=== PATIENT | female | born 1950 | race African-American/Black ===

== ENCOUNTER 2018-02-23 16:26 | Inpatient (IN) | payer OTHER, MEDICARE ==
[~2018-02-23] VITALS: Ht 162.6 cm; Wt 68.9 kg
[~2018-02-23 16:26] MED LIST: AMIT50TA13 PO; ATEN-102 PO; CELE20TA PO; GLIP5TAB15 OR; SERO400T3 OR; SIMV40TA OR
[2018-02-23 16:43] VITALS: BP 134/86; PULSE 82; TEMP 98.3; O2SAT 99
[2018-02-23 18:16] LABS: AUTOMATED NEUTROPHIL # 4.1 TH/MM3 (1.8-7.7); BASOPHIL # 0.1 TH/MM3 (0-0.2); BASOPHIL % 0.7 % (0.0-2.0); EOSINOPHIL # 0.1 TH/MM3 (0-0.4); EOSINOPHIL % 1.7 % (0.0-4.0); HEMOGLOBIN 12.9 GM/DL (11.6-15.3); LYMPH % 31.2 % (9.0-44.0); LYMPHOCYTE # 2.3 TH/MM3 (1.0-4.8); MEAN CELL VOLUME 84.3 FL (80.0-100.0); MEAN CORPUSCULAR HEMOGLOBIN 27.9 PG (27.0-34.0); MEAN CORPUSCULAR HGB CONC 33.1 % (32.0-36.0); MEAN PLATELET VOLUME 7.6 FL (7.0-11.0); MONO % 9.5 % (0.0-8.0); MONOCYTE # 0.7 TH/MM3 (0-0.9); NEUT % 56.9 % (16.0-70.0); PLATELET COUNT 256 TH/MM3 (150-450); RED BLOOD COUNT 4.63 MIL/MM3 (4.00-5.30); RED CELL DISTRIBUTION WIDTH 13.8 % (11.6-17.2); WHITE BLOOD COUNT 7.3 TH/MM3 (4.0-11.0)
[2018-02-23] MEDS ORDERED: SERO300T PO (18:19)
[2018-02-23] MEDS ORDERED: METF500T PO (18:19)
[2018-02-23] MEDS ORDERED: ATEN50TA PO (18:19)
--- NOTE | 2018-02-23 18:22 | PD ---
HPI Chief Complaint: Psychiatric Symptoms Time Seen by Provider: 17:31 Travel History International Travel<30 days: No Contact w/Intl Traveler<30days: No Traveled to known affect area: No History of Present Illness HPI The patient 67 years old. She arrives to the ER complaining of continuous anxiety as well as depressed mood generally which is getting much worse in it has been previously. She has the following statements offered for our understanding of her condition, "good spirit tortures me. The evil spirit tortures me. I feel a lot of hurt and I feel a lot of pain. I cannot do nothing for myself. I do not have the mind to cook." Patient denies drug alcohol abuse. She has been compliant with Seroquel. She follows with psychiatry and is due to see her psychiatrist in 2 months. She makes note of acquaintances which evidently are avoiding the patient or not as supportive as they once were. She also notes dysfunctional relationship with her who she believes is trying to harm the patient in 1 way or another. She denies any plans to harm others. She denies any specific plan to take her own life right now. PFSH Past Medical History Arthritis: No Asthma: No Autoimmune Disease: No Blood Disorders: No Anxiety: Yes Depression: Yes Heart Rhythm Problems: No Cancer: No Cardiovascular Problems: Yes High Cholesterol: Yes Chemotherapy: No Chest Pain: No Congestive Heart Failure: No COPD: No Cerebrovascular Accident: No Diabetes: Yes Patient Takes Glucophage: Yes (METFORMIN) Diminished Hearing: No Endocrine: Yes GERD: No Glaucoma: No Genitourinary: No Headaches: No Hepatitis: No Hiatal Hernia: No Hypertension: Yes Immune Disorder: No Kidney Stones: No Musculoskeletal: No Neurologic: No Psychiatric: Yes Reproductive: No Respiratory: No Migraines: No Myocardial Infarction: No Radiation Therapy: No Renal Failure: No Seizures: No Sleep Apnea: No Thyroid Disease: No Ulcer: No Menopausal: Yes : 1 Para: 0 Miscarriage: 1 : 0 Past Surgical History AICD: No Appendectomy: No Arteriovenous Shunt: No Cardiac Surgery: No Cholecystectomy: No Ear Surgery: No Endocrine Surgery: No Eye Surgery: No Genitourinary Surgery: No Gynecologic Surgery: Yes (LUMP REMOVED FROM RIGHT BREAST) Insulin Pump: No Joint Replacement: No Oral Surgery: No Pacemaker: No Thoracic Surgery: No Other Surgery: Yes (RIGHT BREAST LUMPECTOMY) Social History Alcohol Use: No Tobacco Use: No (STOPPED SMOKING 15 YRS AGO) Substance Use: No Allergies-Medications (Allergen,Severity, Reaction): Coded Allergies: No Known Allergies (Verified , 04/30/11) Reported Meds & Prescriptions Reported Meds & Active Scripts Active Reported Atenolol 50 Mg Tab 50 Mg PO DAILY Seroquel (Quetiapine Fumarate) 300 Mg Tab 300 Mg PO HS Metformin (Metformin HCl) 500 Mg Tab 500 Mg PO BIDPC Review of Systems Except as stated in HPI: all other systems reviewed are Neg General / Constitutional: No: Fever Eyes: No: Blurred Vision Physical Exam Narrative GENERAL: 67-year-old female pleasant well-nourished well-developed no acute distress Vital Signs Date Time Temp Pulse Resp B/P (MAP) Pulse Ox O2 Delivery O2 Flow Rate FiO2 02/23/18 16:43 98.3 82 134/86 (102) 99 Respiratory rate 20 SKIN: Warm and dry. HEAD: Atraumatic. Normocephalic. EYES: Pupils equal and round. No scleral icterus. No injection or drainage. ENT: No nasal bleeding or discharge. Mucous membranes pink and moist. NECK: Trachea midline. No JVD. CARDIOVASCULAR: Regular rate and rhythm. RESPIRATORY: No accessory muscle use. Clear to auscultation. Breath sounds equal bilaterally. GASTROINTESTINAL: Abdomen soft, non-tender, nondistended. Hepatic and splenic margins not palpable. MUSCULOSKELETAL: Extremities without clubbing, cyanosis, or edema. No obvious deformities. NEUROLOGICAL: Awake and alert. No obvious cranial nerve deficits. Motor grossly within normal limits. Five out of 5 muscle strength in the arms and legs. Normal speech. PSYCHIATRIC: Reasonably cooperative. Depressed affect. Denies suicidal/ homicidal plan. Data Data Last Documented VS Vital Signs Date Time Temp Pulse Resp B/P (MAP) Pulse Ox O2 Delivery O2 Flow Rate FiO2 02/23/18 16:43 98.3 82 134/86 (102) 99 Orders Orders Complete Blood Count With Diff (02/23/18 17:40) Comprehensive Metabolic Panel (02/23/18 17:40) Thyroid Stimulating Hormone (02/23/18 17:40) Psych Screen (02/23/18 17:40) Drug Screen, Random Urine (02/23/18 17:40) Alcohol (Ethanol) (02/23/18 17:40) Admit Order (Ed Use Only) (02/23/18 ) Diet 1999 Ada Cons Carb (02/23/18 Dinner) Labs Laboratory Tests Test 02/23/18 17:45 02/23/18 18:00 Urine Opiates Screen NEG Urine Barbiturates Screen NEG Urine Amphetamines Screen NEG Urine Benzodiazepines Screen NEG Urine Cocaine Screen NEG Urine Cannabinoids Screen NEG White Blood Count 7.3 TH/MM3 Red Blood Count 4.63 MIL/MM3 Hemoglobin 12.9 GM/DL Hematocrit 39.0 % Mean Corpuscular Volume 84.3 FL Mean Corpuscular Hemoglobin 27.9 PG Mean Corpuscular Hemoglobin Concent 33.1 % Red Cell Distribution Width 13.8 % Platelet Count 256 TH/MM3 Mean Platelet Volume 7.6 FL Neutrophils (%) (Auto) 56.9 % Lymphocytes (%) (Auto) 31.2 % Monocytes (%) (Auto) 9.5 % Eosinophils (%) (Auto) 1.7 % Basophils (%) (Auto) 0.7 % Neutrophils # (Auto) 4.1 TH/MM3 Lymphocytes # (Auto) 2.3 TH/MM3 Monocytes # (Auto) 0.7 TH/MM3 Eosinophils # (Auto) 0.1 TH/MM3 Basophils # (Auto) 0.1 TH/MM3 CBC Comment DIFF FINAL Differential Comment Blood Urea Nitrogen 14 MG/DL Creatinine 0.90 MG/DL Random Glucose 113 MG/DL Total Protein 7.9 GM/DL Albumin 3.6 GM/DL Calcium Level 9.0 MG/DL Alkaline Phosphatase 82 U/L Aspartate Amino Transf (AST/SGOT) 12 U/L Alanine Aminotransferase (ALT/SGPT) 19 U/L Total Bilirubin 0.3 MG/DL Sodium Level 140 MEQ/L Potassium Level 3.5 MEQ/L Chloride Level 107 MEQ/L Carbon Dioxide Level 26.1 MEQ/L Anion Gap 7 MEQ/L Estimat Glomerular Filtration Rate 76 ML/MIN Thyroid Stimulating Hormone 3rd Gen 1.440 uIU/ML Ethyl Alcohol Level LESS THAN 3 MG/DL MDM Medical Decision Making Medical Screen Exam Complete: Yes Emergency Medical Condition: Yes Medical Record Reviewed: Yes Differential Diagnosis Altered mental status/psychosis due to infection/environmental exposure/ metabolic abnormality, polypharmacy, alcohol abuse/intoxication, illicit or prescribed drug abuse, malingering/secondary gain, non-organic psychiatric disease Narrative Course The patient arrives voluntarily. She has no suicidal plan. She has no homicidal plan. Overall I think the patient would stand to gain the most from inpatient psychiatry stay although I doubt there is an imminent suicide risk. Signs of mild psychosis are present including commentary regarding good and evil spirits as well as friends conspiring against her. She has non-insulin- dependent diabetes hypertension hyperlipidemia. I was able to talk to case over with Dr. Plunkett. We will admit the patient to inpatient psych with a medicine consult. This was also discussed with J pod nurse Halie. CBC & BMP Diagram 02/23/18 18:00 Total Protein 7.9, Albumin 3.6, Calcium Level 9.0, Alkaline Phosphatase 82, Aspartate Amino Transf (AST/SGOT) 12 L, Alanine Aminotransferase (ALT/SGPT) 19, Total Bilirubin 0.3 The TSH is normal The alcohol is less than 3 Urine drug screen is thibodeaux negative Patient became quite anxious at about 6:55 PM we discussed breathing techniques. she was reassured and I offered to order her a one-time dose of Ativan. Overall she felt better within a couple minutes following our discussion. Diagnosis Primary Impression: Major depression Qualified Codes: F32.9 - Major depressive disorder, single episode, unspecified Additional Impression: Anxiety and depression Admitting Information Admitting Physician Requests: Admit Rosendo Whitmore MD February 23, 2018 18:22
[2018-02-23] MEDS ORDERED: GLUCAGON 1 MG/ML VIAL OTHER PRN (18:30)
[2018-02-23] MEDS ORDERED: NICOTINE 21 MG/24 HR PATCH T-DERMAL PRN (18:30)
[2018-02-23] MEDS ORDERED: ALUMINUM/MAGNESIUM/SIMETH 30 ML CUP PO PRN (18:30)
[2018-02-23] MEDS ORDERED: ACETAMINOPHEN 325 MG TAB PO PRN (18:30)
[2018-02-23] MEDS ORDERED: MAGNESIUM HYDROXIDE SUSP 30 ML CUP PO PRN (18:30)
[2018-02-23] MEDS ORDERED: DEXTROSE 50% IN WATER 50 ML VIAL(D50) IV PUSH PRN (18:30)
[2018-02-23] MEDS ORDERED: REMOVE OLD PATCH T-DERMAL PRN (18:45)
[2018-02-23 18:52] LABS: ALBUMIN 3.6 GM/DL (3.4-5.0); ALKALINE PHOSPHATASE 82 U/L (45-117); ALT (GPT) 19 U/L (10-53); AST (GOT) 12 U/L (15-37); BICARBONATE 26.1 MEQ/L (21.0-32.0); BLOOD UREA NITROGEN 14 MG/DL (7-18); CHLORIDE 107 MEQ/L (98-107); GLOMERULAR FILTRATION RATE 76 ML/MIN (>89); GLUCOSE,RANDOM 113 MG/DL (74-106); SODIUM (NA) 140 MEQ/L (136-145); TOTAL BILIRUBIN ADULT 0.3 MG/DL (0.2-1.0); TOTAL PROTEIN 7.9 GM/DL (6.4-8.2)
[2018-02-23 20:13] VITALS: BP 180/92; PULSE 74; RESP 16; TEMP 97.9; O2SAT 99
[2018-02-23] MEDS: QUEtiapine FUMARATE 300 MG TAB PO SCH (20:47)
[2018-02-23] MEDS: INSULIN ASPART SUPPLEMENTAL SCALE SQ SCH (20:48)
[2018-02-23] MEDS ORDERED: METO1TAB9 PO (23:32)
[2018-02-24 05:52] VITALS: BP 151/89; PULSE 88; RESP 17; TEMP 98.3; O2SAT 100
[2018-02-24] MEDS: INSULIN ASPART SUPPLEMENTAL SCALE SQ SCH ×4 (08:00→20:25)
[2018-02-24] MEDS: ATENOLOL 50 MG TAB PO SCH (08:34)
[2018-02-24] MEDS: metFORMIN HCL 500 MG TAB PO SCH ×2 (08:35→17:28)
[2018-02-24 10:08] LABS: BICARBONATE 27.4 MEQ/L (21.0-32.0); BLOOD UREA NITROGEN 12 MG/DL (7-18); CALCIUM 9.5 MG/DL (8.5-10.1); CHLORIDE 103 MEQ/L (98-107); CHOLESTEROL 217 MG/DL (120-200); CHOLESTEROL/ HDL RATIO 3.58 RATIO; CREATININE 1.06 MG/DL (0.50-1.00); GLOMERULAR FILTRATION RATE 63 ML/MIN (>89); GLUCOSE,RANDOM 237 MG/DL (74-106); HDL CHOLESTEROL 60.5 MG/DL (40.0-60.0); LDL CHOLESTEROL 113 MG/DL (0-99); SODIUM (NA) 140 MEQ/L (136-145); TRIGLYCERIDES 217 MG/DL (42-150)
[2018-02-24 11:20] LABS: HEMOGLOBIN A1C 7.4 % (4.3-6.0)
--- NOTE | 2018-02-24 15:05 | HHI.HP ---
Provisional Diagnosis Admission Date February 23, 2018 at 18:16 [place] I. 1. Schizoaffective disorder, bipolar type, acute exacerbation [place] II. Deferred Certification of Person's Competence To Provide Express and Informed Consent I have personally examined Sophia Flanagan , a person being served at [facility] on, February 24, 2018 15:05. Express and informed consent means consent voluntarily given in writing, by a competent person, after sufficient explanation and disclosure of the subject matter involved to enable the person to make a knowing and willful decision without any element of force, fraud, deceit, duress, or other form of constraint or coercion. This person is 18 years of age or older, is not now known to be incompetent to consent to treatment with a guardian advocate, and does not have a health care surrogate or proxy currently making medical treatment decisions. I have found this person to be one of the following: [x] Competent to provide express and informed consent, as defined above, for voluntary admission to this facility and is competent to provide express and informed consent for treatment. He/she has the consistent capacity to make well reasoned, willful, and knowing decisions concerning his or her medical or mental health treatment. The person fully and consistently understands the purpose of the admission for examination/placement and is fully capable of personally exercising all rights assured [place] Incompetent to provide express and informed consent to voluntary admission, and this is incompetent to provide express and informed consent to treatment. The person must be transferred to involuntary status and a petition for a guardian advocate filed with the Circuit Court. [] Refusing to provide express and informed consent to voluntary admission but is competent to provide express and informed consent for treatment. The person must be discharged or transferred to involuntary status. Form shall be completed within 24 hours of a person's arrival at the receiving facility and filed in the clinical record of each person: 1. Admitted on a voluntary basis 2. Permitted to provide express and informed consent to his/her own treatment 3. Allowed to transfer from involuntary to voluntary status 4. Prior to permitting a person to consent to his or her own treatment after having been previously found incompetent to consent to treatment. History of Present Illness Capacity: Has Capacity Psych Chief Complaint: Psychosis HPI Ms. Flanagan is a 67-year-old female with a history of schizoaffective disorder who presented voluntarily to the emergency room complaining of anxiety and depression. Reviewing the electronic medical record, I note that the patient was admitted most recently [place] [address] Baires. Patient seen and examined with nurse. Chart reviewed. Case discussed with nursing staff. On my examination today, the patient is a somewhat discursive historian. She appears to exhibit some stereotypies with her hands. She has a somewhat silly, childlike affect. She tells me that she has been getting "negative vibes" from a male partner, possibly her , and she feels like he has been "bringing me down." Unclear to what extent this is reality based, and at another point she complains that he has been flirting with other women. She also alleges that this person has been "trying to put a spirit in me" to convince her to use drugs as he does. She also alleges that this person is "turning the neighbors against me." She denies any suicidal or homicidal ideation. Denies any audiovisual hallucinations. She does admit to feelings of paranoia. No other delusions elicited. Mood is somewhat depressed. No hypomanic or manic symptoms. Remainder of the psychiatric ROS is negative. No acute physical complaints. Past psychiatric history: The patient has a history of schizoaffective disorder. She follows with a female psychiatrist in [place]. Most recent psychiatric admission was here at [facility]. She denies any history of suicide attempts. Family history: The patient denies any family history of mental illness. Chemical dependency history: Patient denies any abuse of drugs or alcohol. Social history: The patient is in a partnered relationship. She is a [employer]. No reported access to guns or firearms. Review of Systems ROS Limitations: Psychotic, Poor Historian Except as stated in HPI: all other systems reviewed are Neg Past Family Social History Coded Allergies: No Known Allergies (Verified , 04/30/11) Past Medical History Includes a history of hypertension and diabetes Reported Medications Metoprolol Succinate ER 24 HR (Metoprolol Succinate ER 24 HR) 50 Mg Tab, 50 MG PO BID, #30 TAB 0 Refills 02/23/18 Atenolol (Atenolol) 50 Mg Tab, 50 MG PO DAILY for Blood Pressure Management, # 30 TAB 0 Refills 02/23/18 Quetiapine (Seroquel) 300 Mg Tab, 300 MG PO HS, #30 TAB 0 Refills 02/23/18 Metformin (Metformin) 500 Mg Tab, 500 MG PO BIDPC for Blood Sugar Management, # 60 TAB 0 Refills 02/23/18 Current Medications Medications (Trade) Dose Ordered Sig/Ashlee Route Start Time Stop Time Status Last Admin (Tylenol) 650 mg Q4H PRN PO 02/23/18 18:30 (Milk Of Magnesia Liq) 30 ml DAILY PRN PO 02/23/18 18:30 (Mag-Al Plus Susp Liq) 30 ml Q6H PRN PO 02/23/18 18:30 (Habitrol 21 Mg Patch.24 Hr) 1 patch DAILY PRN T-DERMAL 02/23/18 18:30 (Tenormin) 50 mg DAILY PO 02/24/18 09:00 02/24/18 08:34 (Glucophage) 500 mg BIDPC PO 02/24/18 09:00 02/24/18 08:35 (SEROquel) 300 mg HS PO 02/23/18 21:00 Future Hold (D50w (Vial) Inj) 50 ml UNSCH PRN IV PUSH 02/23/18 18:30 (Glucagon Inj) 1 mg UNSCH PRN OTHER 02/23/18 18:30 (NovoLOG SUPPLEMENTAL SCALE) 1 ACHS SLIDING SCALE SQ 02/23/18 21:00 02/24/18 12:00 Miscellaneous Information 1 HS PRN T-DERMAL 02/23/18 18:45 Patient's Strengths (min. 2) In a monitored setting. Verbally fluent. Physical Exam Physical examination was completed by the ED provider. On my examination today , the patient appears to be in no acute physical distress. Except as above, no other motor abnormalities noted. Labs and vitals reviewed: Vital Signs Vital Signs Date Time Temp Pulse Resp B/P (MAP) Pulse Ox O2 Delivery O2 Flow Rate FiO2 02/24/18 05:52 98.3 88 17 151/89 (109) 100 Lab Results Test 02/23/18 17:45 02/23/18 18:00 02/24/18 08:47 Urine Opiates Screen NEG Urine Barbiturates Screen NEG Urine Amphetamines Screen NEG Urine Benzodiazepines Screen NEG Urine Cocaine Screen NEG Urine Cannabinoids Screen NEG White Blood Count 7.3 TH/MM3 Red Blood Count 4.63 MIL/MM3 Hemoglobin 12.9 GM/DL Hematocrit 39.0 % Mean Corpuscular Volume 84.3 FL Mean Corpuscular Hemoglobin 27.9 PG Mean Corpuscular Hemoglobin Concent 33.1 % Red Cell Distribution Width 13.8 % Platelet Count 256 TH/MM3 Mean Platelet Volume 7.6 FL Neutrophils (%) (Auto) 56.9 % Lymphocytes (%) (Auto) 31.2 % Monocytes (%) (Auto) 9.5 % Eosinophils (%) (Auto) 1.7 % Basophils (%) (Auto) 0.7 % Neutrophils # (Auto) 4.1 TH/MM3 Lymphocytes # (Auto) 2.3 TH/MM3 Monocytes # (Auto) 0.7 TH/MM3 Eosinophils # (Auto) 0.1 TH/MM3 Basophils # (Auto) 0.1 TH/MM3 CBC Comment DIFF FINAL Differential Comment Blood Urea Nitrogen 14 MG/DL 12 MG/DL Creatinine 0.90 MG/DL 1.06 MG/DL Random Glucose 113 MG/DL 237 MG/DL Total Protein 7.9 GM/DL Albumin 3.6 GM/DL Calcium Level 9.0 MG/DL 9.5 MG/DL Alkaline Phosphatase 82 U/L Aspartate Amino Transf (AST/SGOT) 12 U/L Alanine Aminotransferase (ALT/SGPT) 19 U/L Total Bilirubin 0.3 MG/DL Sodium Level 140 MEQ/L 140 MEQ/L Potassium Level 3.5 MEQ/L 3.5 MEQ/L Chloride Level 107 MEQ/L 103 MEQ/L Carbon Dioxide Level 26.1 MEQ/L 27.4 MEQ/L Anion Gap 7 MEQ/L 10 MEQ/L Estimat Glomerular Filtration Rate 76 ML/MIN 63 ML/MIN Thyroid Stimulating Hormone 3rd Gen 1.440 uIU/ML Ethyl Alcohol Level LESS THAN 3 MG/DL Hemoglobin A1c 7.4 % Triglycerides Level 217 MG/DL Cholesterol Level 217 MG/DL LDL Cholesterol 113 MG/DL HDL Cholesterol 60.5 MG/DL Cholesterol/HDL Ratio 3.58 RATIO Decreased GFR noted. Hyperglycemia noted. Elevated hemoglobin A1c noted. Lipid panel abnormalities noted. Mental Status Examination Appearance: Appropriate Consciousness: Alert Orientation: x4 Motor Activity: Normal gait Speech: Rapid Language: Other (Rambling) Fund of Knowledge: Adequate Attention and Concentration: Easily Distracted Memory: Unremarkable Mood: Other (Depressed) Affect: Other (Somewhat silly, childlike) Thought Process & Associations: Circumstantial Thought Content: Delusional Hallucination Type: None Delusion Type: Paranoid Suicidal Ideation: No Suicidal Plan: No Suicidal Intention: No Homicidal Ideation: No Homicidal Plan: No Homicidal Intention: No Insight: Fair Judgment: Impulsive Assessment & Plan Problem List: (1) Schizoaffective disorder, bipolar type ICD Codes: F25.0 - Schizoaffective disorder, bipolar type Assessment & Plan 67-year-old female with psychiatric history as detailed above who is presently voluntarily admitted to the psychiatric unit. On my examination today, the patient elaborates paranoid delusions and endorses subjective paranoia. There may be some degree of reality basis to some of her reports regarding her male partner, but the overall picture is most consistent with paranoia. Patient reports adherence with her Seroquel. She requires psychiatric admission at this time for safety, observation and medication adjustment for stabilization. Admit inpatient. Voluntary status. Titrate Seroquel to 50 mg in the morning and 300 mg at bedtime with plans for ongoing titration to effect to target psychosis. Check EKG for QTC. Low-dose Ativan as needed for anxiety. Benadryl as needed for sleep. Cogentin as needed for EPS. Continue patient's atenolol for hypertension and metformin for hyperglycemia. Add sliding scale insulin and Accu-Cheks. I will ask the hospitalist to see the patient to evaluate whether medical regimen needs to be adjusted and to address the lipid panel abnormalities. OT eval. Vitals every shift. Counselor to see. Collateral information. Disposition planning. Estimated length of stay: 5-7 days. Discharge Planning Pending psychiatric stabilization Request HC Surrog/Guard Advoc?: No Floyd Plunkett MD February 24, 2018 15:05
[2018-02-24] MEDS ORDERED: diphenhydrAMINE HCL 50 MG CAP PO PRN (15:30)
[2018-02-24] MEDS ORDERED: LORazepam 2 MG/ML VIAL IM PRN (15:30)
[2018-02-24] MEDS ORDERED: BENZTROPINE MESYLATE 1 MG TAB PO PRN (15:30)
[2018-02-24] MEDS ORDERED: BENZTROPINE MESYLATE 2 MG/2 ML VIAL IM PRN (15:30)
[2018-02-24] MEDS ORDERED: LORazepam 0.5 MG TAB PO PRN (15:30)
[2018-02-24] MEDS ORDERED: cloNIDine HCL 0.1 MG TAB PO PRN (17:30)
--- NOTE | 2018-02-24 17:40 | EKG ---
Date Performed: 02/24/2018 Time Performed: 16:32:57 PTAGE: 67 years EKG: SINUS BRADYCARDIA BORDERLINE ECG PREVIOUS TRACING : 08/27/2009 00.27 Compared to previous tracing, heart rate has decreased, non specific ST changes have resolved. DOCTOR: Gopal Gill Interpretating Date/Time 02/24/2018 17:39:24
[2018-02-24 18:40] VITALS: BP 126/81; PULSE 74; RESP 17; TEMP 98.6; O2SAT 100
[2018-02-24] MEDS: QUEtiapine FUMARATE 300 MG TAB PO SCH (20:25)
[2018-02-25 05:27] VITALS: BP 123/73; PULSE 63; RESP 16; TEMP 98.5; O2SAT 98
[2018-02-25] MEDS: INSULIN ASPART SUPPLEMENTAL SCALE SQ SCH ×4 (08:00→21:00)
[2018-02-25] MEDS: QUEtiapine FUMARATE 25 MG TAB PO SCH (08:57)
[2018-02-25] MEDS: metFORMIN HCL 500 MG TAB PO SCH ×2 (08:57→18:06)
[2018-02-25] MEDS: ATENOLOL 50 MG TAB PO SCH (08:57)
[2018-02-25] MEDS ORDERED: amLODIPine BESYLATE 5 MG TAB PO SCH (09:00)
--- NOTE | 2018-02-25 10:02 | PD.CONS ---
HPI Service [facility] Hospitalists Consult Requested By Psychiatry service Reason for Consult Medical management history of hypertension, diabetes mellitus type II Primary Care Physician Jeremy Castellano MD Diagnoses: History of Present Illness Patient is a very pleasant 67-year-old female with known history of hypertension , diabetes, who was admitted under psychiatry service. Patient states that she brought herself in "I need help, really depressed and anxious and everything else! ". [facility] hospitalist consulted for management of hypertension, diabetes. Patient states she checks blood sugars "all day long" and states good hypoglycemic awareness. Patient states sugars usually ranging 120s occasionally the 200s. She denies any chest pain shortness of breath cough weight loss. States she follows up with her primary care physician Dr. Petar Tierney on a regular basis. Patient currently denies any complaints, appears anxious but very pleasant cooperative and delightful. States she is up-to-date with her colonoscopy which was negative about 5 years ago, gets mammogram yearly per patient - unremarkable. Review of Systems Constitutional: DENIES: Fever, Weight loss, Chills, Change in appetite Eyes: DENIES: Blurred vision, Double Vision Ears, nose, mouth, throat: DENIES: Tinnitus, Ear Pain, Epistaxis, Odynophagia Respiratory: DENIES: Cough, Hemoptysis, Sputum production, Shortness of breath Cardiovascular: DENIES: Chest pain, Palpitations, Dyspnea on Exertion, Lower Extremity Edema, Orthopnea Gastrointestinal: DENIES: Black stools, Bloody stools, Difficulty Swallowing, Anorexia Genitourinary: DENIES: Urgency, Hematuria, Vaginal discharge Musculoskeletal: DENIES: Joint pain, Stiffness Integumentary: DENIES: Pruritus Hematologic/lymphatic: DENIES: Bruising Immunologic/allergic: DENIES: Urticaria Neurologic: DENIES: Headache, Speech Problems, Tremor Psychiatric: DENIES: Suicidal Ideation, Homicidal Ideation Past Family Social History Allergies: Coded Allergies: No Known Allergies (Verified , 04/30/11) Past Medical History Hypertension, diabetes type 2, depression/anxiety Past Surgical History Left wrist carpal tunnel surgery 5 years ago Reported Medications Home meds per patient states - she is on Metformin atenolol and Seroquel - she is not sure about amlodipine Active Ordered Medications Currently in-house she is on Seroquel 50 mg daily 200 mg at bedtime Amlodipine 5 mg daily Ativan as needed Benadryl as needed Cogentin 0.5 IM as needed Atenolol 50 mg daily Metformin 500 twice daily Sliding scale insulin Nicotine patch Family History She has a sister who is a diabetic and is insulin requiring Social History Denies smoking alcohol or substance abuse Physical Exam Vital Signs Vital Signs Date Time Temp Pulse Resp B/P (MAP) Pulse Ox O2 Delivery O2 Flow Rate FiO2 02/25/18 05:27 98.5 63 16 123/73 (90) 98 02/24/18 18:40 98.6 74 17 126/81 (96) 100 Physical Exam GENERAL: This is a well-nourished, well-developed patient, in no apparent distress. Awake alert oriented 3, appears delightfully anxious, speech hurried and very interactive SKIN: Cool and dry. HEAD: Atraumatic. Normocephalic. EYES: Pupils equal round and reactive. Extraocular motions intact. No scleral icterus. ENT: Nose without bleedingThroat without erythema. Uvula midline. Airway patent. NECK: Trachea midline. No JVD or lymphadenopathy. Supple, nontender, no meningeal signs. CARDIOVASCULAR: Regular rate and rhythm-heart rate 60/min regular without murmurs, gallops, or rubs. RESPIRATORY: Clear to auscultation. Breath sounds equal bilaterally. No wheezes , rales, or rhonchi. GASTROINTESTINAL: Abdomen soft, non-tender, nondistended. No guarding. MUSCULOSKELETAL: Extremities without clubbing, cyanosis, or edema. No joint tenderness, effusion, or edema noted. No calf tenderness. Negative Homans sign bilaterally. Good peripheral pulses NEUROLOGICAL: Awake and alert. Cranial nerves II through XII intact. Motor and sensory grossly within normal limits. Five out of 5 muscle strength in all muscle groups. Normal speech. Laboratory Laboratory Tests Test 02/25/18 08:45 Result Diagram: 02/23/18 1800 02/24/18 0847 Assessment and Plan Assessment and Plan 67-year-old [facility] currently blood pressure is 123/73 heart rate of 63, was initially elevated on admission-likely secondary to psychiatric condition was probably agitated state on initial evaluation Continue on atenolol 50 mg p.o. daily. - was started on Amlodipine 5 mg daily.- will DC We will consider changing to an SARAI inhibitor which will be ideal for a diabetic hypertensive.- with renal protection benefits Twelve-lead EKG shows normal sinus rhythm no acute ST-T wave changes Chest x- ray reviewed - negative for infiltrates or effusion We will continue to monitor and adjust medications Diabetes type 2 hemoglobin A1c 7.4 -Glucose reading 150, 121 - Continue on on ADA diet. Continue on metformin 500 mg twice daily and monitor. And adjust. Diabetes education/nutritional needs consult. Hyperlipidemia. Lipid panel was rechecked this morning to make sure that this is a fasting specimen. Immigration Services Officer consult. Consider starting patient on statins-review of records in the past 2010 patient was on statins. Patient denies does not recall any reactions to these medications Patient up and ambulating. Thank you for this consult will follow patient in-house with you Discussed Condition With Patient Jordan Lang MD February 25, 2018 10:02
[2018-02-25 10:24] LABS: BICARBONATE 29.1 MEQ/L (21.0-32.0); CALCIUM 9.7 MG/DL (8.5-10.1); CREATININE 0.98 MG/DL (0.50-1.00)
[2018-02-25 10:28] LABS: CHOLESTEROL/ HDL RATIO 4.11 RATIO; HDL CHOLESTEROL 49.6 MG/DL (40.0-60.0)
[2018-02-25 17:01] VITALS: BP 127/66; PULSE 76; RESP 16; TEMP 97.3; O2SAT 99
--- NOTE | 2018-02-25 17:22 | HHI.PYPN ---
Subjective Chief Complaint: Psychosis Remarks Patient seen for follow-up, chart reviewed. Discussion with nursing staff reported that the patient noted to be paranoid. Patient was found in day room noted to be calm and cooperative. She states that she is feeling " better...more relaxed", noted to be somewhat disorganized, difficulty to follow train of thought. She states that she is feeling "more open" regarding her worries about dealing with her depression and anxiety; "negative thinking". She mentions feeling of being mistreated by emotionally. Currently reporting feeling "less depressed", denies any SI at this time. Patient mentions living alone for the past several months. Review of Systems Except as stated in HPI: all other systems reviewed are Neg Mental Status Examination Appearance: Appropriate Consciousness: Alert Orientation: x4 Motor Activity: Normal gait Speech: Rapid Language: Other (Rambling) Fund of Knowledge: Adequate Attention and Concentration: Easily Distracted Memory: Unremarkable Mood: Other (Depressed) Affect: Other (Somewhat silly, childlike) Thought Process & Associations: Circumstantial, Disorganized (at times) Thought Content: Delusional Hallucination Type: None Delusion Type: Paranoid Suicidal Ideation: No Suicidal Plan: No Suicidal Intention: No Homicidal Ideation: No Homicidal Plan: No Homicidal Intention: No Insight: Fair Judgment: Impulsive Results Labs labs reviewed. Test 02/25/18 08:45 Blood Urea Nitrogen 17 MG/DL Creatinine 0.98 MG/DL Random Glucose 245 MG/DL Calcium Level 9.7 MG/DL Sodium Level 138 MEQ/L Potassium Level 3.4 MEQ/L Chloride Level 101 MEQ/L Carbon Dioxide Level 29.1 MEQ/L Anion Gap 8 MEQ/L Estimat Glomerular Filtration Rate 68 ML/MIN Triglycerides Level 219 MG/DL Cholesterol Level 204 MG/DL LDL Cholesterol 111 MG/DL HDL Cholesterol 49.6 MG/DL Cholesterol/HDL Ratio 4.11 RATIO Vitals/IOs Vital Signs Date Time Temp Pulse Resp B/P (MAP) Pulse Ox O2 Delivery O2 Flow Rate FiO2 02/25/18 17:01 97.3 76 16 127/66 (86) 99 Assessment & Plan Problem List: (1) Schizoaffective disorder, bipolar type ICD Codes: F25.0 - Schizoaffective disorder, bipolar type Assessment & Plan Patient reports feeling depressed but improving, noted with some disorganization. Will continue current treatment and monitor mood and behavior. May need to require further titration if patient continues with limited improvement. Discharge planning in progress. Justification for Cont. Inpt. At risk for further decompensation at lower level of care. Request HC Surrog/Guard Advoc?: No Anand Rose MD February 25, 2018 17:22
[2018-02-25] MEDS: QUEtiapine FUMARATE 300 MG TAB PO SCH (21:22)
[2018-02-26 06:29] VITALS: BP 104/51; PULSE 70; RESP 18; TEMP 98.4; O2SAT 98
[2018-02-26] MEDS: INSULIN ASPART SUPPLEMENTAL SCALE SQ SCH ×3 (08:00→16:12)
[2018-02-26] MEDS: QUEtiapine FUMARATE 25 MG TAB PO SCH (08:31)
[2018-02-26] MEDS: metFORMIN HCL 500 MG TAB PO SCH (08:31)
[2018-02-26] MEDS: ATENOLOL 50 MG TAB PO SCH (08:31)
[2018-02-26] MEDS ORDERED: ATORVASTATIN 20 MG TAB PO SCH (09:00)
[2018-02-26] MEDS ORDERED: POTASSIUM CHLORIDE 25 MEQ EFFERVESCENT TAB PO ONE (09:00)
--- NOTE | 2018-02-26 12:19 | HHI.PR ---
Subjective Remarks Patient up ambulating about the room appears to be in no acute distress Patient offers no complaints at this time reports feeling well overall Objective Vitals Vital Signs Date Time Temp Pulse Resp B/P (MAP) Pulse Ox O2 Delivery O2 Flow Rate FiO2 02/26/18 06:29 98.4 70 18 104/51 (68) 98 02/25/18 17:01 97.3 76 16 127/66 (86) 99 Result Diagram: 02/23/18 1800 02/25/18 0845 Other Results Laboratory Tests Test 02/23/18 17:45 02/23/18 18:00 02/24/18 08:47 02/25/18 08:45 Urine Opiates Screen NEG Urine Barbiturates Screen NEG Urine Amphetamines Screen NEG Urine Benzodiazepines Screen NEG Urine Cocaine Screen NEG Urine Cannabinoids Screen NEG White Blood Count 7.3 TH/MM3 Red Blood Count 4.63 MIL/MM3 Hemoglobin 12.9 GM/DL Hematocrit 39.0 % Mean Corpuscular Volume 84.3 FL Mean Corpuscular Hemoglobin 27.9 PG Mean Corpuscular Hemoglobin Concent 33.1 % Red Cell Distribution Width 13.8 % Platelet Count 256 TH/MM3 Mean Platelet Volume 7.6 FL Neutrophils (%) (Auto) 56.9 % Lymphocytes (%) (Auto) 31.2 % Monocytes (%) (Auto) 9.5 % Eosinophils (%) (Auto) 1.7 % Basophils (%) (Auto) 0.7 % Neutrophils # (Auto) 4.1 TH/MM3 Lymphocytes # (Auto) 2.3 TH/MM3 Monocytes # (Auto) 0.7 TH/MM3 Eosinophils # (Auto) 0.1 TH/MM3 Basophils # (Auto) 0.1 TH/MM3 CBC Comment DIFF FINAL Differential Comment Blood Urea Nitrogen 14 MG/DL 12 MG/DL 17 MG/DL Creatinine 0.90 MG/DL 1.06 MG/DL 0.98 MG/DL Random Glucose 113 MG/DL 237 MG/DL 245 MG/DL Total Protein 7.9 GM/DL Albumin 3.6 GM/DL Calcium Level 9.0 MG/DL 9.5 MG/DL 9.7 MG/DL Alkaline Phosphatase 82 U/L Aspartate Amino Transf (AST/SGOT) 12 U/L Alanine Aminotransferase (ALT/SGPT) 19 U/L Total Bilirubin 0.3 MG/DL Sodium Level 140 MEQ/L 140 MEQ/L 138 MEQ/L Potassium Level 3.5 MEQ/L 3.5 MEQ/L 3.4 MEQ/L Chloride Level 107 MEQ/L 103 MEQ/L 101 MEQ/L Carbon Dioxide Level 26.1 MEQ/L 27.4 MEQ/L 29.1 MEQ/L Anion Gap 7 MEQ/L 10 MEQ/L 8 MEQ/L Estimat Glomerular Filtration Rate 76 ML/MIN 63 ML/MIN 68 ML/MIN Thyroid Stimulating Hormone 3rd Gen 1.440 uIU/ML Ethyl Alcohol Level LESS THAN 3 MG/DL Hemoglobin A1c 7.4 % Triglycerides Level 217 MG/DL 219 MG/DL Cholesterol Level 217 MG/DL 204 MG/DL LDL Cholesterol 113 MG/DL 111 MG/DL HDL Cholesterol 60.5 MG/DL 49.6 MG/DL Cholesterol/HDL Ratio 3.58 RATIO 4.11 RATIO Objective Remarks GENERAL: This is a well-nourished, well-developed patient, in no apparent distress. CARDIOVASCULAR: Regular rate and rhythm RESPIRATORY: Clear to auscultation. Breath sounds equal bilaterally. GASTROINTESTINAL: Abdomen soft, non-tender, nondistended. Normal active bowel sounds MUSCULOSKELETAL: Extremities without clubbing, cyanosis, or edema. NEURO: Awake and alert. moves all ext x4 A/P Assessment and Plan 67-year-[facility] currently blood pressure is 123/73 heart rate of 63, was initially elevated on admission-likely secondary to psychiatric condition was probably agitated state on initial evaluation Continue on atenolol 50 mg p.o. daily. - was started on Amlodipine 5 mg daily DC'd We will consider changing to an SARAI inhibitor which will be ideal for a diabetic hypertensive.- with renal protection benefits Twelve-lead EKG shows normal sinus rhythm no acute ST-T wave changes Chest x- ray reviewed - negative for infiltrates or effusion We will continue to monitor and adjust medications Diabetes type 2 hemoglobin A1c 7.4 -Glucose reading elevated - Continue on on ADA diet. Increase metformin 1000 mg twice daily and monitor. - Diabetes education/nutritional needs consult. Hyperlipidemia. Lipid panel reviewed and revealed total cholesterol 204, LDL 111, HDL 49.6, triglycerides 219 Net Trainer consult. ASCVD risk reveals 17.5% risk of cardiovascular event in the next 10 years patient recommended to have high dose statin Start simvastatin 20 mg daily, will likely need to be increased by outpatient PCP if patient able to tolerate Supervising physician Jihan Escobedo February 26, 2018 12:19
[2018-02-26] MEDS ORDERED: SERO300T PO (13:29)
[2018-02-26] MEDS ORDERED: QUET5TAB PO (13:29)
[2018-02-26] MEDS ORDERED: ATEN50TA PO (13:29)
[2018-02-26] MEDS ORDERED: METF500 PO (13:29)
[2018-02-26] MEDS ORDERED: ATOR20TA15 PO (13:29)
--- NOTE | 2018-02-26 13:30 | HHI.DS ---
Psychiatry Discharge Summary Inpatient Psychiatric care?: Yes Advance Directive: No Reason Not Provided: Due to Patient Condition Mental Health AdvanceDirective: No Health Care Proxy: No Admission Admission Date February 23, 2018 at 18:16 Admission Diagnosis: (1) Schizoaffective disorder, bipolar type ICD Code: F25.0 - Schizoaffective disorder, bipolar type Brief History Ms. Flanagan is a 67-year-old female with a history of schizoaffective disorder who presented voluntarily to the emergency room complaining of anxiety and depression. Reviewing the electronic medical record, I note that the patient was admitted most recently [place] [address] Baires. Patient seen and examined with nurse. Chart reviewed. Case discussed with nursing staff. On my examination today, the patient is a somewhat discursive historian. She appears to exhibit some stereotypies with her hands. She has a somewhat silly, childlike affect. She tells me that she has been getting "negative vibes" from a male partner, possibly her , and she feels like he has been "bringing me down." Unclear to what extent this is reality based, and at another point she complains that he has been flirting with other women. She also alleges that this person has been "trying to put a spirit in me" to convince her to use drugs as he does. She also alleges that this person is "turning the neighbors against me." She denies any suicidal or homicidal ideation. Denies any audiovisual hallucinations. She does admit to feelings of paranoia. No other delusions elicited. Mood is somewhat depressed. No hypomanic or manic symptoms. Remainder of the psychiatric ROS is negative. No acute physical complaints. Past psychiatric history: The patient has a history of schizoaffective disorder. She follows with a female psychiatrist in [place]. Most recent psychiatric admission was here at [place]. She denies any history of suicide attempts. Family history: The patient denies any family history of mental illness. Chemical dependency history: Patient denies any abuse of drugs or alcohol. Social history: The patient is in a partnered relationship. She is a Jainism. No reported access to guns or firearms. Tobacco Use In Past 30 Days: No Tobacco Past 30 Days Alcohol Use: Monthly or Less Hospital Course Patient is a 67-year-old -[place] woman, recently , unemployed, domiciled alone, with a past psychiatric history of schizoaffective disorder, previous psychiatric admission, no history of suicide attempts, who was endorsing depressed mood along with anxiety with concerns of some psychotic symptoms upon initial evaluation in the emergency room was admitted to the inpatient psychiatry unit for further evaluation and management. Patient was resumed on quetiapine and titrated up to 50mg daily and 300 mg at bedtime, along with his medication regimen for chronic medical illnesses which she tolerated well with no adverse drug reactions. Patient initially with depressed mood due to relationship discord with recently along with some disorganization and paranoia which improved during admission and was not noted with any behavioral disturbances, tolerated medication well with good effect. Patient did not endorse any further psychotic symptoms not noted to be disorganized or internally preoccupied toward end of hospitalization. Patient continued to maintain stable mood, with no manic, depressive or psychotic symptoms noted toward end of admission. She was calm and cooperative with staff , compliant with medications and had no behavioral disturbances since admission. Upon discharge patient stated feeling good, stated feeling okay with returning back to her residence; noted to be calm and cooperative and stated that he would be willing to continue treatment and follow-up. He agreed to continuing medical recommendations, treatment and cooperate for continuity of care. Patient; denies SI, HI, AVH or delusions. Supportive psychotherapy provided. Patient advised to call 911 or go nearest ED in case of emergency. Patient agreed with plan. Results Blood Pressure 104 / 51 Vital Signs Date Time Temp Pulse Resp B/P (MAP) Pulse Ox O2 Delivery O2 Flow Rate FiO2 02/26/18 06:29 98.4 70 18 104/51 (68) 98 Laboratory Tests Test 02/23/18 17:45 02/23/18 18:00 02/24/18 08:47 02/25/18 08:45 Monocytes (%) (Auto) 9.5 % (0.0-8.0) Random Glucose 113 MG/DL (74-106) 237 MG/DL (74-106) 245 MG/DL (74-106) Aspartate Amino Transf (AST/SGOT) 12 U/L (15-37) Estimat Glomerular Filtration Rate 76 ML/MIN (>89) 63 ML/MIN (>89) 68 ML/MIN (>89) Creatinine 1.06 MG/DL (0.50-1.00) Hemoglobin A1c 7.4 % (4.3-6.0) Triglycerides Level 217 MG/DL (42-150) 219 MG/DL (42-150) Cholesterol Level 217 MG/DL (120-200) 204 MG/DL (120-200) LDL Cholesterol 113 MG/DL (0-99) 111 MG/DL (0-99) HDL Cholesterol 60.5 MG/DL (40.0-60.0) Potassium Level 3.4 MEQ/L (3.5-5.1) Laboratory Results Test 02/24/18 08:47 02/25/18 08:45 Hemoglobin A1c 7.4 % (4.3-6.0) Cholesterol Level 204 MG/DL (120-200) HDL Cholesterol 49.6 MG/DL (40.0-60.0) LDL Cholesterol 111 MG/DL (0-99) Triglycerides Level 219 MG/DL (42-150) Summary of Procedures none Pending results at discharge: No Medications # of Antipsychotic meds at D/C: 1 Approp Antipsych med options 1 - Minimum of three failed multiple trials of monotherapy. 2 - Documented plan to taper to monotherapy due to previous use of multiple meds OR cross-taper in progress at D/C. 3 - Documentation of augmentation of Clozapine. 4 - Justification other than those listed in allowable values 1-3, document here : Discharge Discharge Date: February 26, 2018 Discharge Diagnosis: (1) Schizoaffective disorder, bipolar type ICD Code: F25.0 - Schizoaffective disorder, bipolar type Pt Condition on Discharge: Stable Discharge Disposition: Discharge Home Discharge Instructions Diet Instructions: Heart Healthy Diet Activities you can perform: Regular-No Restrictions Discharge Time > 30 minutes Mental Status Examination Appearance: Appropriate Consciousness: Alert Orientation: x4 Motor Activity: Normal gait Speech: Unremarkable Language: Adequate Fund of Knowledge: Adequate Attention and Concentration: Easily Distracted Memory: Unremarkable Mood: Other ("Much better") Affect: Other (Somewhat silly, childlike) Thought Process & Associations: Circumstantial Thought Content: Appropriate Hallucination Type: None Delusion Type: None Suicidal Ideation: No Suicidal Plan: No Suicidal Intention: No Homicidal Ideation: No Homicidal Plan: No Homicidal Intention: No Insight: Fair Judgment: Impulsive Discharge/Advance Care Plan Health Problems: (1) Schizoaffective disorder, bipolar type Goals to promote your health * To prevent worsening of your condition and complications * To maintain your health at the optimal level Directions to meet your goals Take your medications as prescribed Follow your dietary instruction Follow activity as directed Keep your appointments as scheduled Take your immunizations and boosters as scheduled If your symptoms worsen call your PCP, if no PCP go to Urgent Care Center or Emergency Room For 30/04 questions related to your inpatient stay or results of tests pending at discharge, please contact Dr. Anand Rose at Smoking is Dangerous to Your Health. Avoid second hand smoking Anand Rose MD February 26, 2018 13:30
[2018-02-26] MEDS ORDERED: metFORMIN HCL 500 MG TAB PO SCH (18:00)
== END 2018-02-26 16:55 | disposition home or self-care (01) | DRG 885 ==
LOC: NEPD 16:26 → NEDA 18:16 → H260 19:25
PROVIDERS: ADMIT Student in an Organized Health Care Education/Training Program; ATTEND Student in an Organized Health Care Education/Training Program
DX: F25.0 Schizoaffective disorder, bipolar type (principal); E11.65 Type 2 diabetes mellitus with hyperglycemia; Z79.84 Long term (current) use of oral hypoglycemic drugs; I10 Essential (primary) hypertension; E78.5 Hyperlipidemia, unspecified; Z87.891 Personal history of nicotine dependence
CPT/HCPCS: 80048; 80053; 80061; 80307; 82948; 83036; 84443; 85025; 93005; 99285; J1815